=== PATIENT | male | born 1985 | race Caucasian/White ===

== ENCOUNTER 2021-06-15 10:41 | Emergency (ER) | payer OTHER, SELFPAY ==
[2021-06-15 10:51] VITALS: BP 122/78; PULSE 79; RESP 16; TEMP 36.6; O2SAT 99
--- NOTE | 2021-06-15 11:01 | ED.ABDPAIN ---
HPI - Abdominal Pain General Chief Complaint: Nausea/Vomiting/Diarrhea Stated Complaint: diarrhea/vomiting Time Seen by Provider: 06/15/21 11:01 Source: patient and RN notes reviewed Mode of arrival: ambulatory Limitations: no limitations History of Present Illness HPI narrative: 35-year-old male presents to the [facility] with complaints of nausea, diarrhea without abdominal pain. Patient states that he had to call into work. Related Data Allergies Allergy/AdvReac Type Severity Reaction Status Date / Time Penicillins Allergy Mild Verified 04/23/16 06:30 tramadol Allergy Mild BEHAVIOR Verified 04/23/16 06:30 PROBLEMS KETOROLAC TROMETHAMINE Allergy Unknown BEHAVIOR Uncoded 04/23/16 06:30 PROBLEMS Review of Systems Review of Systems: All systems reviewed & are unremarkable except as noted in HPI and below Constitutional: Constitutional: Reports no additional constitutional complaints, Denies chills and Denies fever(s) Eyes: Eyes: Reports no additional eye complaints ENT: Reports system reviewed and no additional complaints, except as documented Cardiovascular: Cardiovascular: Reports no additional cardiovascular complaints and Denies chest pain Respiratory: Respiratory: Reports no additional respiratory complaints, Denies cough and Denies dyspnea Gastrointestinal: Gastrointestinal: Reports as per HPI, Denies abdominal pain, Reports diarrhea, Reports nausea and Reports vomiting Genitourinary: Genitourinary: Reports no additional male genitourinary complaints Musculoskeletal: Musculoskeletal: Reports no additional musculoskeletal complaints Integumentary/Breasts: Skin/Breast: Reports system reviewed and no additional complaints, except as docu Neurologic: Reports system reviewed and no additional complaints, except as documented Psychiatric: Psychiatric: Reports no additional psychiatric complaints Allergic/Immunologic: Allergic/Immunologic: Reports no additional allergic/immunologic complaints PMFSH Past Medical History Medical History (Updated 06/15/21 @ 19:22 by Leatha Esteban) No significant medical problems Surgical History Surgical History (Updated 06/15/21 @ 19:22 by Leatha Esteban) No significant past surgical history Comments At the time of my signature, I reviewed and agree with the nursing past medical, surgical, social, and family history. There is no relevant family history pertinent to the patient complaint. Exam Const: General: healthy appearing, no acute distress and alert Nutritional Appearance: well nourished Orientation/consciousness: patient oriented x3 Limitations: no limitations HENMT: Head: normal to inspection Eyes: Conjunctivae: conjunctivae normal Pupils: Equal, round and reactive pupils present Neck: Neck: normal visual inspection, no lymphadenopathy and no meningeal signs Chest: Chest palpation & inspection: normal inspection of the chest Resp: Effort & Inspection: normal respiratory effort Auscultation: clear to auscultation bilaterally Cardio: Rate: regular rate Rhythm: regular rhythm Back/Spine/Pelvis: Back: no CVA tenderness Skin: General skin exam: normal color Rashes: no rashes Wounds: no wounds Neuro: General: patient oriented x3, moves all extremities, no meningeal signs and no focal motor deficits Speech: normal speech Gait exam (Neuro): Normal gait present Extrem: General: normal to inspection and no pedal edema Psych: Appearance: grossly normal and well kempt Mental Status: mental status grossly normal Affect: normal affect Attitude: cooperative Thought content: Yes Normal thought content present Course Course Emergency Course: P.o. challenge, patient able to keep water down. States he is feeling little bit better. Will discharge with strict instructions to go to the emergency room which patient verbalizes understanding Discharge instructions reviewed with patient, as well as provided in writing per nursing staff. The instru
[2021-06-15] MEDS: ONDANSETRON HCL ODT 4 MG TABLET PO (11:14)
--- NOTE | 2021-06-15 11:25 | PC.NURSE ---
given water for fluid challenge.
== END 2021-06-15 12:02 | disposition home or self-care (01) ==
PROVIDERS: Emergency Provider Nurse Practitioner
DX: K21.9 Gastro-esophageal reflux disease without esophagitis (principal)
CPT/HCPCS: 99213; A9270; G0463